=== PATIENT | male | born 2000 | race Caucasian/White ===

== ENCOUNTER 2020-04-06 10:33 | Emergency (ER) | payer OTHER, SELFPAY ==
[2020-04-06 10:35] VITALS: BP 131/84; PULSE 102; RESP 16; TEMP 36.3; O2SAT 99; BMI 19.8
[2020-04-06] MEDS: lidocaine 1% INJ 20 mL IM (10:53)
[2020-04-06 10:59] VITALS: BP 147/88
--- NOTE | 2020-04-06 11:37 | W.ED.WOUNDLC ---
HPI - Wound/Laceration General: Chief Complaint: Wound/Laceration Stated Complaint: injury to right pinky Time Seen by Provider: 04/06/20 10:37 History of Present Illness: HPI narrative: Pleasant 20-year-old male patient presents to the emergency department with laceration to the right fifth digit. He reports was washing dishes when a glass broke causing him to sustain a laceration. Onset (ago): minute(s) (30) Place: home Patient tetanus UTD: No Context: accidental Associated symptoms: Reports no associated symptoms; Denies chills, fever(s), nausea or vomiting Treatments prior to arrival: bandage Review of Systems General: Reports: 10 or more systems reviewed and unremarkable except in HPI and below Const: Denies: fever(s), chills or diaphoresis Eyes: Denies: blurry vision or eye redness ENMT: Denies: throat pain, dental pain or disequilibrium Card: Denies: chest pain, palpitations or irregular heart rhythm Resp: Denies: dyspnea, productive cough, non-productive cough or wheezing GI: Denies: abdominal pain, nausea or vomiting : Denies: dysuria Musc: Denies: neck pain, back pain, joint pain or joint swelling Skin/Breast: Reports: skin tenderness, changes in skin color and other (finger laceration); Denies: rash or pruritus Neuro: Denies: headache(s), weakness in extremities or behavioral changes Psych: Denies: anxiety or depression Daryl/Lymph: Denies: easy bruising Physical Exam Const: COMMON NORMALS: no acute distress, patient oriented x3, healthy appearing and alert GENERAL APPEARANCE: cooperative, comfortable and well hydrated HENMT: COMMON NORMALS: normocephalic, Normal external nose present and moist oral mucous membranes HEAD & SCALP: normocephalic NOSE: Normal external nose present Eye: COMMON NORMALS: Equal, round and reactive pupils present and EOMs intact bilaterally GENERAL EYE: appearance normal, both eyes and all related structures PUPIL: Yes Equal, round and reactive pupils present Neck/C-Spine: COMMON NORMALS: full ROM and no lymphadenopathy GENERAL: Yes normal visual inspection and Yes trachea midline CERVICAL SPINE: Yes cervical ROM normal Lymph: LYMPHATIC: no lymphadenopathy noted Chest: COMMONS NORMALS: normal inspection of the chest Resp: COMMON NORMALS: normal respiratory effort and clear to auscultation bilaterally AUSCULTATION: clear to auscultation bilaterally Cardio: COMMON NORMALS: regular rhythm, S1 normal heart sound present and S2 normal heart sound present RHYTHM: regular rhythm HEART SOUNDS: S1 normal heart sound present and S2 normal heart sound present GI: COMMON NORMALS: Soft to palpation and non-tender INSPECTION: Yes normal to inspection PALPATION: Yes Soft to palpation : COMMON NORMALS: Yes no CVA tenderness BLADDER/KIDNEY EXAM: Yes no CVA tenderness Back/Pelvis: COMMON NORMALS: no CVA tenderness and thoracic and lumbar spine normal to inspection Extremity: COMMON NORMALS: normal to inspection, full ROM and capillary refill normal GENERAL: Yes normal exam except as noted RIGHT UPPER EXTREMITY: Yes hand & digits Right hand and digits: Yes inspection (laceration 1.5 cm 2nd ulnar side PIP), Yes ROM exam (intact), Yes neurovascular exam (distally intact) and Yes tendon exam (fully intact) Neuro: COMMON NORMALS: patient oriented x3 and no focal motor deficits SENSORIUM/ORIENTATION: Yes alert Psych: COMMON NORMALS: mental status grossly normal, Normal thought process present and cooperative ACTIVITY/MOTOR BEHAVIOR: Yes appropriate eye contact THOUGHT PROCESS: Normal thought process present Skin: COMMON NORMALS: no rashes or lesions noted and turgor normal GENERAL SKIN EXAM: no rashes or lesions noted, elasticity normal and turgor normal WOUNDS: Yes wounds noted size (1.5 cm), drainage bloody, margins well approximated and open; not malodorous and without any surrounding erythema Procedures Laceration Laceration 1: Site: hand (5th digits, rt, ulnar side) Side (If applicable): right Size (cm): 1.5 Description: linear, flap, contaminated and other (contused) Depth: involves muscle layer Pre-repair: wound explored, irrigated extensively, deep structures intact and extensive debridement Skin layer closed with: nylon Size (cm): 4-0 Number of sutures: 5 Technique: simple, interrupted Nerve Block Nerve Block 1: Time out performed: Yes Local Anesthetic: lidocaine 1% Amount of anesthesia used (mL): 8 Side: right Nerve Blocks: digital (5th) Procedure Successful: Yes Patient Tolerated Procedure: well Complications: none Course Vital Signs: Vital signs: Vital Signs Temperature 97.3 F L 04/06/20 10:35 Pulse Rate 102 H 04/06/20 10:35 Respiratory Rate 16 04/06/20 10:35 Blood Pressure 127/80 04/06/20 12:02 Pulse Oximetry 99 04/06/20 12:02 Discharge Plan Discharge Patient Disposition: Home Clinical Impression: Laceration of finger of left hand Qualifiers: Encounter type: initial encounter Finger: little finger Damage to nail status: without damage Foreign body presence: unspecified Qualified Code(s): S61.217A - Laceration without foreign body of left little finger without damage to nail, initial encounter Condition: Stable Prescriptions: No Action No Known Home Medications RF: 0 Discharge Orders: Discharge ED (Routine); Ordered 04/06/20 Ordered By: Treva Peña Discharge Diet: Usual diet Discharge Activity: Limit activity as instructed Patient Instructions: Diphtheria/Acellular Pertussis/Tetanus Booster Vaccine (Tdap) (Injection), Suture Care (ED), Laceration (ED) Activity Restrictions/Additional Instructions: Sutures out 7 to 10 days Do not submerge the laceration with sutures in water May gently cleanse with soap and water twice daily then pat dry Return to the emergency department or follow-up with your primary care provider if you develop redness, swelling or red streaking from the wound/purulent drainage Leave pressure dressing on for 24 hours then may gently remove. May cover with a Band-Aid as needed Coding Level of Care Code ED [employer] Specialist for Tre Fwd Exam Comprehensive
[2020-04-06] MEDS: tetanus-dipt-pertussis 0.5 mL SDV IM (11:43)
[2020-04-06] MEDS: neomycin-poly-bacitracin oint 0.9 gm Pkt 1 APPLIC TOPICAL (11:47)
--- NOTE | 2020-04-06 12:01 | PC.NURSE ---
Right 5th finger dressed with telfa, 4x4 guaze and coban after antibiotic ointment applied. Pt instructed to leave dressing on for 24 hours.
[2020-04-06 12:02] VITALS: BP 127/80; O2SAT 99
--- NOTE | 2020-04-15 12:15 | PC.NURSE ---
removed 5 sutures, in middle of sutures not approximated well. white pus noted around area. nixon HANSON secondary assessment and states will heal on its own and will close on its own and to continue to keep clean and dry.
== END 2020-04-06 12:01 | disposition home or self-care (01) ==
PROVIDERS: Emergency Provider Nurse Practitioner Family
DX: S61.217A Laceration without foreign body of left little finger without damage to nail, initial encounter (principal); W25.XXXA Contact with sharp glass, initial encounter; Y93.G1 Activity, food preparation and clean up; Z23 Encounter for immunization
CPT/HCPCS: 12001; 12345; 90471; 90715; 99281; 99282; 99291